=== PATIENT | male | born 1990 | race Hispanic/Latino ===

== ENCOUNTER 2022-05-19 19:24 | Emergency (ER) | payer SELFPAY ==
[2022-05-19] MEDS ORDERED: Ondansetron ODT 4 MG TAB ONE (20:18)
== END 2022-05-19 20:24 | disposition home or self-care (01) ==
LOC: CSHERS 19:24
DX: R11.2 Nausea with vomiting, unspecified (principal); F17.210 Nicotine dependence, cigarettes, uncomplicated
CPT/HCPCS: 99283; Q0162